=== PATIENT | female | born 1970 | race Caucasian/White ===

== ENCOUNTER → 2019-12-21 | Outpatient (CLI) | payer OTHER ==
[~2019-12-21] MED LIST: AC325T PO; CEPH-507 PO; DOCU100C37 PO; ENXP100I SC; FAMO40TA72 PO; HYDR-3714 PO; IBUP-1780 PO; MELO15TA14 PO; MTF500T PO; OXYC-465 PO; PRD20T PO; SPIR50TA4 PO; TRIA1CAP4 PO; WRF5T PO; [UNRECOGNIZED DRUG - CODE] PO; sprintec PO
--- NOTE | 2019-12-21 10:34 | Diagnostic Imaging Report ---
INDICATION: Routine screening. COMPARISON: 12/06/2013. TECHNIQUE: 2D and 3D bilateral screening mammography was performed with CAD. FINDINGS: Scattered fibroglandular densities are identified bilaterally. The parenchymal pattern is stable. No mass or malignant appearing microcalcifications are seen. The axillae are unremarkable. IMPRESSION: No mammographic features suspicious for malignancy are identified. ACR BI-RADS Category 1: Negative. Result letter will be mailed to the patient. Note: At least 10% of breast cancer is not imaged by mammography. Dictated by: Dictated on workstation # [id number]
== END ==
LOC: RAD 09:05
PROVIDERS: ATTEND Family Medicine
DX: Z12.31 Encounter for screening mammogram for malignant neoplasm of breast (principal)
CPT/HCPCS: 77067

== ENCOUNTER → 2020-12-17 | Outpatient (CLI) | payer OTHER ==
[~2020-12-17] MED LIST changes: -OXYC-465 PO; +OXYC-556 PO
--- NOTE | 2020-12-17 12:29 | Diagnostic Imaging Report ---
PROCEDURE: US right lower extremity venous. TECHNIQUE: Multiple real-time grayscale images were obtained over the right lower extremity in various projections. Additional spectral analysis and color Doppler duplex images were also obtained. INDICATION: Right lower extremity pain and swelling. FINDINGS: There is no evidence of right lower extremity DVT. The right lower extremity deep venous system shows normal compressibility with normal response to augmentation and Valsalva. No fluid collection or mass is detected. IMPRESSION: No evidence of right lower extremity DVT. Dictated by: Dictated on workstation # [id number]
== END ==
LOC: RAD 11:07
PROVIDERS: ATTEND Family Medicine
DX: M79.661 Pain in right lower leg (principal); M79.89 Other specified soft tissue disorders; Z86.718 Personal history of other venous thrombosis and embolism

== ENCOUNTER → 2020-12-22 | Outpatient (CLI) | payer OTHER ==
--- NOTE | 2020-12-22 10:09 | Diagnostic Imaging Report ---
INDICATION: Routine screening. Comparison is made with prior mammogram 12/21/2019. 2-D and 3-D bilateral screening mammography was performed with CAD. Scattered fibroglandular densities are identified bilaterally. No mass or malignant appearing microcalcific stations are seen. Axillae are unremarkable. IMPRESSION: BI-RADS Category 1 No mammographic features suspicious for malignancy are identified. ACR BI-RADS Category 1: Negative. Result letter will be mailed to the patient. Note: At least 10% of breast cancer is not imaged by mammography. Dictated by: Dictated on workstation # [id number]
== END ==
LOC: RAD 09:45
PROVIDERS: ATTEND Family Medicine
DX: Z12.31 Encounter for screening mammogram for malignant neoplasm of breast (principal)
CPT/HCPCS: 77063; 77067

== ENCOUNTER 2022-04-14 06:39 | Outpatient (CLI) | payer OTHER ==
[~2022-04-14] VITALS: Ht 162.6 cm; Wt 122.3 kg
[2022-04-15] MEDS ORDERED: ESTR1TAB24 PO (10:53)
[2022-04-15] MEDS ORDERED: TELM80TA8 PO (10:53)
[2022-04-15] MEDS ORDERED: ALLO100T PO (10:53)
[2022-04-15] MEDS ORDERED: ATOR10TA66 PO (10:53)
== END 2022-04-15 10:55 | disposition home or self-care (01) ==
LOC: PREOP 06:39
PROVIDERS: ATTEND Internal Medicine
DX: Z01.818 Encounter for other preprocedural examination (principal)

== ENCOUNTER 2022-04-23 07:31 | Day surgery (SDC) | payer OTHER ==
--- NOTE | 2022-04-13 20:06 | HISTORY AND PHYSICAL ---
DATE OF SERVICE: COLONOSCOPY HISTORY AND PHYSICAL HISTORY OF PRESENT ILLNESS: The patient is a 52-year-old white female being referred for her first screening colonoscopy by Dr. Barbour. She is deemed to be of average risk as she is not aware of any family history for colon cancer or colon polyps. She denies bright red blood per rectum, change in bowel habits, melena or abdominal pain. PAST MEDICAL HISTORY: Significant for hypertension, hyperlipidemia and gout as well as a BMI 40 to 45. SOCIAL HISTORY: She is employed with no past smoking history and no significant alcohol intake. FAMILY HISTORY: Father of complications of COVID at the age of 74. Mother of a brain tumor at the age of 72. PAST SURGICAL HISTORY: She had total abdominal hysterectomy in 2016 and also previous hand surgery, right trigger finger release. REVIEW OF SYSTEMS: CONSTITUTIONAL: Denies night sweats, chills, fever or change in weight. CARDIOVASCULAR: As noted in the HPI. PULMONARY: Denies cough, wheezing or shortness of breath. CARDIOVASCULAR: Denies orthopnea, PND, pedal edema, syncope or chest discomfort. PHYSICAL EXAMINATION: GENERAL: Pleasant white female, appears to be in no acute distress. VITAL SIGNS: Weight 269 pounds. Blood pressure 142/86. HEENT: Unremarkable. Sclerae nonicteric. CHEST: Clear to auscultation. CARDIOVASCULAR: Reveals regular rate and rhythm without murmur, S3 or S4. ABDOMEN: Soft, supple without mass, organomegaly or tenderness. EXTREMITIES: Reveal no cyanosis, clubbing or edema. ASSESSMENT: The patient is being set up for screening colonoscopy. Prep instructions were given. Questions were answered. Electronic medical record reviewed. I thank you for the referral of this pleasant lady. Job ID: [id number] DocumentID: [id number] Dictated Date: 03/29/2022 17:41:55 Material Handler 1St Shift Date: 03/29/2022 17:54:13 Dictated By: RAINA BECERRA MD
[~2022-04-23] VITALS: Ht 162.6 cm; Wt 122.3 kg
[~2022-04-23 07:31] MED LIST changes: +ALLO100T PO; +ATOR10TA66 PO; +ESTR1TAB24 PO; +TELM80TA8 PO
[2022-04-23] MEDS ORDERED: LACTATED RINGERS 1,000 ML IV STA (07:36)
[2022-04-23 07:42] VITALS: BP 132/84
--- NOTE | 2022-04-23 08:09 | Pre-Op Note & Conscious Sedat ---
Pre-Operative Progress Note H&P Reviewed The H&P was reviewed, patient examined and no changes noted. Date H&P Reviewed: Apr 23, 2022 Time H&P Reviewed: 08:09 Conscious Sedation Pre-Proced ASA Score 2 For ASA 3 and 4: Consider anesthesia and medical clearance. Also, for patients with a history of failed moderate sedation consider anesthesia. Airway Lungs Heart ASA score ASA 1: a normal healthy patient ASA 2: a patient with a mild systemic disease (mid diabetes, controlled hypertension, obesity ASA 3: a patient with a severe systemic disease that limits activity (angina, COPD, prior Myocardial infarction) ASA 4: a patient with an incapacitating disease that is a constant threat to life (CHF, renal failure) ASA 5: a moribund patient not expected to survive 24 hrs. (ruptured aneurysm) ASA 6: a declared brain- patient whose organs are being harvested. For emergent operations, add the letter E after the classification Mallampati Classification Grade 2 Sedation Plan Analgesia, Amnesia, Plan communicated to team members, Discussed options with patient/fam, Discussed risks with patient/fam The patient is an appropriate candidate to undergo the planned procedure, sedation, and anesthesia. The patient immediately re-assessed prior to indication. RAINA BECERRA MD Apr 23, 2022 08:09
[2022-04-23] MEDS ORDERED: PROPOFOL INJECTION 50 ML IV ONE (08:42)
[2022-04-23 09:13] VITALS: BP 102/51
[2022-04-23 09:18] VITALS: BP 104/51
[2022-04-23 09:20] VITALS: BP 104/51
[2022-04-23 09:50] VITALS: BP 127/68
[2022-04-23 10:10] VITALS: BP 127/68
--- NOTE | 2022-04-23 10:35 | Anesthesia-General Post-Op ---
MAC Patient Condition Mental Status/LOC: Same as Preop Cardiovascular: Satisfactory Nausea/Vomiting: Absent Respiratory: Satisfactory Pain: Controlled Complications: Absent Post Op Complications Complications None Follow Up Care/Instructions Patient Instructions None needed. Anesthesiology Discharge Order Discharge Order Patient is doing well, no complaints, stable vital signs, no apparent adverse anesthesia problems. No complications reported per nursing. BROOK GONZALEZ CRNA Apr 23, 2022 10:35
--- NOTE | 2022-04-23 17:59 | OPERATIVE REPORT ---
DATE OF SERVICE: COLONOSCOPY SUMMARY REFERRING PHYSICIAN: Nenita Barbour DO INDICATION FOR THE PROCEDURE: Screening colonoscopy. DESCRIPTION OF PROCEDURE: The patient was placed in the left lateral decubitus position. Prior to undergoing colonoscopy, a digital rectal evaluation was performed. Anal sphincter tone was normal. The perianal reflexes intact. No abnormalities were noted on digital inspection of the anal canal or distal rectal vault. The colonoscope was inserted in the rectum and under direct visualization advanced to the cecum. The cecum was identified by identification of the ileocecal valve and cecal strap. Photographic documentation was obtained. There was some solid stool still present in the sigmoid colon, potentially obstructing small polyps, anything large, there was not likely enough to obscure, anything considered to be moderate or large. Otherwise, the prep was good. FINDINGS: There was no evidence for internal or external hemorrhoids. Present in the mid rectum was a 3 mm sessile adenomatous appearing polyp. It was biopsied and ablated with hot forceps. The remainder of the rectum and sigmoid colon were unremarkable. Present in the proximal descending colon was a 3 mm sessile polyp. It was biopsied and ablated again with no blood loss. The splenic flexure, transverse colon and hepatic flexure were unremarkable. There are questionable sessile polyps in the mid and proximal ascending colon that were biopsied and cauterized. The cecum except for the aforementioned stool was unremarkable. ASSESSMENT: Potentially, four small polyps were noted, biopsied and ablated. Considering that the cecum was incompletely visualized due to some retained stool, as long as there are no surprises on histopathology report, we would advocate repeat surveillance colonoscopy in three years. I thank you for the referral of this pleasant lady. Job ID: [id number] DocumentID: [id number] Dictated Date: 04/23/2022 09:11:07 Thread Spooler Date: 04/23/2022 17:58:50 Dictated By: RAINA BECERRA MD
== END 2022-04-23 10:30 | disposition home or self-care (01) ==
LOC: ENDO 07:31
PROVIDERS: ATTEND Internal Medicine
DX: Z12.11 Encounter for screening for malignant neoplasm of colon (principal); D12.2 Benign neoplasm of ascending colon; D12.4 Benign neoplasm of descending colon; K62.1 Rectal polyp
CPT/HCPCS: 88305

== ENCOUNTER 2022-07-02 08:52 | Outpatient (CLI) | payer OTHER | END 2022-07-02 09:10 | LOC: SLEEP 08:52 | PROVIDERS: ATTEND Family Medicine | DX: G47.33 Obstructive sleep apnea (adult) (pediatric) (principal) | CPT/HCPCS: G0399 ==

== ENCOUNTER → 2023-07-28 | Outpatient (CLI) | payer OTHER ==
--- NOTE | 2023-07-28 12:34 | Diagnostic Imaging Report ---
EXAMINATION: US Lower Extremity Venous Duplex Left. TECHNIQUE: Multiple real-time grayscale images were obtained over the left lower extremity in various projections. Additional spectral analysis and color Doppler duplex images were also obtained. HISTORY: Acute left leg pain and swelling. COMPARISON: None available. FINDINGS: The left common femoral vein, deep femoral vein, superficial femoral vein and popliteal vein are patent with normal grayscale and Doppler appearance. There is normal respiratory variation and augmentation. The visualized calf vessels are patent. IMPRESSION: 1. No DVT of the left lower extremity. Dictated by: Dictated on workstation # [id number]
== END ==
LOC: RAD 10:41
PROVIDERS: ATTEND Family Medicine
DX: M79.89 Other specified soft tissue disorders (principal); M79.605 Pain in left leg